=== PATIENT | female | born 1995 | race Caucasian/White ===

== ENCOUNTER 2019-09-13 06:48 | Emergency (ER) | payer OTHER ==
[~2019-09-13] VITALS: Ht 160 cm; Wt 68.2 kg
[2019-09-13 06:54] VITALS: BP 116/71; TEMP 98.2
[2019-09-13] MEDS ORDERED: ATARAX 10MG10 MG/TAB PO (07:07)
[2019-09-13] MEDS ORDERED: PROZAC 20MG20 MG PO ×2 (07:15→07:16)
[2019-09-13 07:23] LABS: BASO % 0.3 % (0.0-2.0); EOS # 0.1 (0.0-0.7); EOS % 0.7 % (0-4.0); GRAN # 5.2 (1.4-6.5); GRAN % 76.4 % (42.2-75.2); HEMATOCRIT 42.4 % (37.0-47.0); HEMOGLOBIN 13.9 g/dl (12.5-16.0); LYMPH % 14.9 % (20.0-51.0); MEAN CELL VOLUME 99 fl (80.0-100.0); MEAN CORPUSCULAR HEMOGLOBIN 32 pg (27.0-31.0); MEAN CORPUSCULAR HGB CONC 33 g/dl (33.0-37.0); MEAN PLATELET VOLUME 9.7 fl (7.4-10.4); MONO # 0.5 (0.1-0.6); MONO % 7.4 % (1.7-9.3); PLATELET COUNT 192 K/mm3 (130-400); REDCELL DISTRIBUTION WIDTH-CV 12.9 % (11.5-14.5)
[2019-09-13 07:43] LABS: ALBUMIN 4.3 gm/dL (3.5-5.0); BILIRUBIN,TOTAL 0.8 mg/dL (0.0-1.0); CALCIUM 9.1 mg/dL (8.4-10.2); CREATININE, serum 0.77 (0.52-1.25); POTASSIUM 4.2 mmol/L (3.4-5.0); TOTAL PROTEIN 7.3 gm/dL (6.4-8.2)
[2019-09-13 08:40] LABS: COLLECTION METHOD CLEAN CATCH
[2019-09-13 09:08] LABS: MUCOUS Present /lpf; PH 5 (5-8); SQUAMOUS EPITHELIAL 0-2 /hpf; URINE APPEARANCE Cloudy; URINE BACTERIA Moderate /hpf; URINE BILIRUBIN Negative (NEGATIVE); URINE BLOOD Negative (NEGATIVE); URINE COLOR Yellow; URINE GLUCOSE Negative (NEGATIVE); URINE KETONE Negative (NEGATIVE); URINE LEUKOCYTE ESTERASE 1+ (NEGATIVE); URINE NITRATE Positive (NEGATIVE); URINE PROTEIN(semi-quant) 1+ (NEGATIVE); URINE UROBILINOGEN Negative (NEGATIVE)
[2019-09-13] MEDS ORDERED: OMNICEF 300MG300 MG PO (09:16)
[2019-09-13] MEDS ORDERED: ZOFRAN 4MG T4 MG/TAB PO (09:16)
[2019-09-13 09:36] VITALS: PULSE 58
== END 2019-09-13 09:40 | disposition home or self-care (01) ==
LOC: COL.ER 06:48
PROVIDERS: Emergency Medicine
DX: N39.0 Urinary tract infection, site not specified (principal)
CPT/HCPCS: J1885; J2405; J7030

== ENCOUNTER 2021-01-09 14:01 | Emergency (ER) | payer OTHER ==
[~2021-01-09] VITALS: Ht 160 cm; Wt 68.2 kg
[~2021-01-09 14:01] MED LIST: ATARAX 10MG10 MG/TAB PO; OMNICEF 300MG300 MG PO; PROZAC 20MG20 MG PO; ZOFRAN 4MG T4 MG/TAB PO
[2021-01-09 14:25] VITALS: BP 103/49; PULSE 66; TEMP 99
[2021-01-09] MEDS ORDERED: ZITHROMAX Z PA250 MG PO (15:02)
[2021-01-09] MEDS ORDERED: DOXYCYCLINE 10100 MG PO (15:02)
== END 2021-01-09 15:35 | disposition home or self-care (01) ==
LOC: COL.ER 14:01
DX: L03.114 Cellulitis of left upper limb (principal); W55.03XA Scratched by cat, initial encounter